=== PATIENT | female | born 1985 | race African-American/Black ===

== ENCOUNTER → 2017-11-17 | Outpatient (CLI) | payer OTHER ==
[2017-11-17] MEDS: IOHEXOL 300 MG/ML 100ML VIAL. IV (14:15)
[2017-11-17] MEDS: IOHEXOL 240 MG/ML 50ML VIAL. PO (14:15)
== END | disposition home or self-care (01) ==
LOC: KCIC CT 12:59
DX: R10.2 Pelvic and perineal pain (principal)
CPT/HCPCS: 74177; Q9966; Q9967